=== PATIENT | female | born 1940 | race American Indian/Alaskan Native ===

== ENCOUNTER 2016-05-13 09:40 | Emergency (ER) | payer MEDICARE ==
--- NOTE | 2016-05-13 10:34 | Emergency Department Report ---
ED Chest Pain HPI - General Chief Complaint: Chest Pain Stated Complaint: CHEST PAIN Time Seen by Provider: 05/13/16 10:03 Source: patient Mode of arrival: Stretcher Limitations: No Limitations - History of Present Illness MD Complaint: chest pain -: Gradual, month(s) Pain Location: left chest, right chest Pain Radiation: none Severity: mild Severity scale (0 -10): 0 Quality: sharp Consistency: intermittent Improves With: nothing Worsens With: inspiration, movement, other (coughing) Other Symptoms: cough. denies: fever, syncope, rash, acid taste in mouth, leg swelling Treatments Prior to Arrival: none - Related Data Home Medications Medication Instructions Recorded Confirmed Last Taken Lisinopril [Zestril TAB] 10 mg PO QDAY 05/13/16 05/13/16 Unknown amLODIPine [Norvasc] 10 mg PO DAILY 05/13/16 05/13/16 Unknown Allergies Allergy/AdvReac Type Severity Reaction Status Date / Time Penicillins Allergy Dizziness Unverified 07/10/14 13:05 JAY score - Jay Score Aspirin use within the Past 7 Days: (1) Yes 2 or more Angina events in past 24 hrs: (0) No Known CAD with more than 50% Stenosis: (0) No Elevated Cardiac Markers: (0) No ST Deviation Greater than 0.5mm: (0) No ED Review of Systems ROS: Stated complaint: CHEST PAIN Other details as noted in HPI Comment: All other systems reviewed and negative ED Past Medical Hx - Past Medical History Hx Hypertension: Yes Hx Arthritis: Yes (Rheumatoid) Additional medical history: Peptic ulcer, t.b spine, compression fx - Surgical History Additional Surgical History: tubal ligation, tumors removed from right breast - Social History Smoking Status: Current Every Day Smoker Substance Use Type: Alcohol, Marijuana - Medications Home Medications: Home Medications Medication Instructions Recorded Confirmed Last Taken Type Lisinopril [Zestril TAB] 10 mg PO QDAY 05/13/16 05/13/16 Unknown History amLODIPine [Norvasc] 10 mg PO DAILY 05/13/16 05/13/16 Unknown History ED Physical Exam - General Limitations: No Limitations General appearance: alert, in no apparent distress - Head Head exam: Present: atraumatic, normocephalic - Eye Eye exam: Present: normal appearance - ENT ENT exam: Present: mucous membranes moist - Neck Neck exam: Present: normal inspection - Respiratory Respiratory exam: Present: normal lung sounds bilaterally, other (mild tenderness in 7th / 8th and 9th rib cage at mid axillary line. ). Absent: respiratory distress - Cardiovascular Cardiovascular Exam: Present: regular rate, normal rhythm, other. Absent: systolic murmur, diastolic murmur, rubs, gallop - GI/Abdominal GI/Abdominal exam: Present: soft, normal bowel sounds - Extremities Exam Extremities exam: Present: normal inspection - Back Exam Back exam: Present: normal inspection - Neurological Exam Neurological exam: Present: alert, oriented X3 - Psychiatric Psychiatric exam: Present: normal affect, normal mood - Skin Skin exam: Present: warm, dry, intact, normal color. Absent: rash ED Course Vital Signs 05/13/16 05/13/16 05/13/16 09:55 10:32 11:30 Temperature 99.0 F Pulse Rate 91 H 87 Respiratory 20 25 H 19 Rate Blood Pressure 138/88 Blood Pressure 191/90 [Right] O2 Sat by Pulse 98 98 95 Oximetry 05/13/16 12:36 Temperature Pulse Rate 81 Respiratory 21 Rate Blood Pressure Blood Pressure 165/85 [Right] O2 Sat by Pulse 98 Oximetry ED Medical Decision Making - Lab Data Result diagrams: 05/13/16 10:20 05/13/16 10:20 - EKG Data -: EKG Interpreted by Me EKG shows normal: sinus rhythm Rate: normal - EKG Data When compared to previous EKG there are: no significant change Interpretation: no acute changes, normal EKG - Medical Decision Making Patient doing well, does not want to get admitted, labs neg , troponin neghative , ekg unchanged during her er visit. Offered admission but her and her granddaughter want to go home , explained the risk and benefits and she still wishes to be discharged. Critical care attestation.: If time is entered above; I have spent that time in minutes in the direct care of this critically ill patient, excluding procedure time. ED Disposition Clinical Impression: Chest pain, Chest pain of uncertain etiology Disposition: DISCHARGED TO HOME OR SELFCARE Is pt being admited?: No Does the pt Need Aspirin: No Condition: Good Instructions: Costochondritis (ED) Referrals: PRIMARY CARE, [Referring] - 3-5 Days Time of Disposition: 13:14
[2016-05-13 10:40] LABS: Eosinophils % (Auto) 0.4 % (0.0-4.3)
[2016-05-13 10:49] LABS: Hemoglobin 9.6 gm/dl (10.1-14.3); Mean Corpuscular HGB Conc 32 % (30-34); Mean Corpuscular Hemoglobin 24 pg (28-32); Mean Corpuscular Volume 75 fl (79-97); Red Blood Count 4.03 M/mm3 (3.65-5.03); White Blood Count 12.3 K/mm3 (4.5-11.0)
[2016-05-13 10:50] LABS: Basophils % (Auto) 0.9 % (0.0-1.8); Mean Platelet Volume 8.4 fl (6-12); Platelet Count 473 K/mm3 (140-440)
[2016-05-13 10:58] LABS: Anion Gap 18 mmol/L; BUN/Creatinine Ratio 18.33; Blood Urea Nitrogen 11 mg/dL (7-17); Calcium 9.2 mg/dL (8.4-10.2); Carbon Dioxide 23 mmol/L (22-30); Chloride 95.6 mmol/L (98-107); Glucose 104 mg/dL (65-100); Potassium 3.7 mmol/L (3.6-5.0); Sodium 133 mmol/L (137-145)
[2016-05-13] MEDS: NACL 0.9% 500 ML 500 ML IV ONE (11:10)
[2016-05-13] MEDS: TORADOL IV ONE (11:11)
--- NOTE | 2016-05-13 11:20 | XRay Report ---
ROUTINE CHEST, TWO VIEWS: HISTORY: Chest pain, coughing. The trachea, heart, mediastinal contour, lung yadav and bony thorax are unremarkable. IMPRESSION: No acute cardiopulmonary process identified.
[2016-05-13 12:37] VITALS: BP 165/85
== END 2016-05-13 13:54 | disposition home or self-care (01) ==
LOC: ED 09:40
DX: R07.9 Chest pain, unspecified (principal); I10 Essential (primary) hypertension; F17.200 Nicotine dependence, unspecified, uncomplicated; F12.10 Cannabis abuse, uncomplicated; Z87.39 Personal history of other diseases of the musculoskeletal system and connective tissue
CPT/HCPCS: 36415; 71020; 80048; 84484; 85025; 93005; 93010; 96361; 96374; 99285; J1885; J7040

== ENCOUNTER 2017-12-09 12:35 | Outpatient (CLI) | payer MEDICARE ==
--- NOTE | 2017-12-10 13:16 | PET Report ---
PET/CT:12/09/17 12:35:00 CLINICAL: Right lung cancer restaging. Documented hepatic metastasis by CT biopsy 04/30/17 RADIOPHARMACEUTICAL: 11.684mCi F18-FDG. COMPARISON: 08/19/17 PET/CT and CT Abdomen 04/30/17 and 04/29/17 TECHNIQUE- Following intravenous injection of F-18 FDG and an approximately 60 minute uptake period, CT and PET images from the mid skull to the upper thighs were acquired with the patient in the fasted state. No contrast was administered. The CT protocol used for this PET CT study is designed for attenuation correction and anatomic localization of PET abnormalities. This chief resource officer CT is not desired to produce and cannot replace, [id number] diagnostic CT scans with specific imaging protocols for different body parts and indications. Plasma glucose at the time of this test: 75g/dl. The standardized uptake values (SUV) are normalized to patient body weight and indicate the highest activity concentration (SUV max) in a given disease site. FINDINGS: Brain--Physiologic FDG uptake in the visualized regions of the brain. Neck--Physiologic FDG uptake the mucosal structures. No mass or lymphadenopathy. Chest--Physiologic FDG uptake in mediastinal blood pool and myocardium. Lungs--No abnormal uptake. An irregular non-FDG avid right upper lobe lung opacity measures 2.2 x 1.4 cm with SUV 1.4 compared to 2.3 x 1.4 cm on the last exam. It has a linear configuration consistent with scar on both coronal and sagittal series. No other lung nodule or mass. A right lower lobe infiltrate has resolved. Pleura/pericardium--No abnormal uptake. Thoracic nodes--No abnormal uptake. Previously described mediastinal lymph nodes are smaller and non-FDG avid. Previously described irregular anterior mediastinal mass measures 1.1 x 1.1 cm with SUV 1.7 compared to 1.7 cm with a CV 2.8 on the last exam. Hepatobiliary--No abnormal uptake. Diffuse liver nodularity but decreased size of previously identified liver hypodensities. Right and left lobe calcified lesions are also less prominent. Liver background SUV mean, as a reference for comparing FDG studies, is 2.7 compared to 3.0 on the last exam. No liver mass. Spleen--No abnormal uptake. Pancreas--No abnormal uptake. Adrenal Glands--No abnormal uptake. Kidneys/Ureters/Bladder--No abnormal uptake. Abdominopelvic Nodes--No abnormal uptake. Bowel/Peritoneum/Mesentery--No abnormal uptake. Pelvic organs--No abnormal uptake. Bones/Soft Tissues--No suspicious uptake and no suspicious bone lesions. Stable chronic wedge compression fractures of T10, L1 and L2. IMPRESSION- 1. A positive response to therapy with resolution of FDG avid right lung tumor and mediastinal lymph nodes. 2. No new disease. 3. Liver nodularity is consistent with treated hepatic metastasis and either cirrhosis or pseudocirrhosis. 4. Stable chronic wedge compression fractures of T10, L1 and L2.
== END 2017-12-09 12:36 | disposition home or self-care (01) ==
LOC: PET 12:35
PROVIDERS: ATTEND Internal Medicine Hematology & Oncology
DX: C34.91 Malignant neoplasm of unspecified part of right bronchus or lung (principal); C34.2 Malignant neoplasm of middle lobe, bronchus or lung; S22.070A Wedge compression fracture of T9-T10 vertebra, initial encounter for closed fracture; S32.020A Wedge compression fracture of second lumbar vertebra, initial encounter for closed fracture; I10 Essential (primary) hypertension; J44.9 Chronic obstructive pulmonary disease, unspecified; M19.90 Unspecified osteoarthritis, unspecified site; Z90.12 Acquired absence of left breast and nipple; Z87.891 Personal history of nicotine dependence; X58.XXXA Exposure to other specified factors, initial encounter; Y93.89 Activity, other specified; Y92.89 Other specified places as the place of occurrence of the external cause; Y99.8 Other external cause status
CPT/HCPCS: 78815; 82962; A9552

== ENCOUNTER 2018-07-13 14:44 | Outpatient (CLI) | payer MEDICARE ==
--- NOTE | 2018-07-13 15:34 | XRay Report ---
XRAY CHEST TWO VIEWS: 07/13/18 14:44:00 CLINICAL: Productive cough.History of right lung cancer. COMPARISON: 11/04/17 FINDINGS: Mild right lower lobe subsegmental atelectasis. No airspace disease or pleural effusion.No pulmonary nodule or mass. Normal heart and pulmonary vasculature. Aortic tortuosity. A left Ohvldd-a-Mayl tip is in the SVC.Chronic wedge compression of the lower thoracic and upper lumbar spine are unchanged compared to previous exams. Arthritic changes in the right shoulder are stable. IMPRESSION: Mild right lower lobe subsegmental atelectasis.No pneumonia, evidence of metastatic disease or CHF.
== END 2018-07-13 14:45 | disposition home or self-care (01) ==
LOC: SPVIMAG 14:44 → XRAY 14:44 → SPVIMAG 14:45
PROVIDERS: ATTEND Internal Medicine Hematology & Oncology
DX: C34.91 Malignant neoplasm of unspecified part of right bronchus or lung (principal); C34.2 Malignant neoplasm of middle lobe, bronchus or lung; J98.11 Atelectasis; I10 Essential (primary) hypertension; J44.9 Chronic obstructive pulmonary disease, unspecified
CPT/HCPCS: 71046